=== PATIENT | female | born 1995 | race Caucasian/White ===

== ENCOUNTER 2025-09-12 19:47 | Inpatient (IN) | payer BC ==
[2025-09-12 20:32] LABS: #Basophils 0.04 10x3/uL (0.0-0.2); #Eosinophils 0.54 10x3/uL (0.0-0.5); #Monocytes 1.16 10x3/uL (0.0-1.1); #Neutrophils 12.10 10x3/uL (1.5-8.4); %Basophils 0.3 % (0.0-2.0); %Eosinophils 3.5 % (0.0-6.0); %Lymphocytes 11.0 % (18.0-47.0); %Monocytes 7.4 % (0.0-10.0); %Neutrophils 77.5 % (40.0-75.0); Hematocrit 35.4 % (34.9-44.5); Hemoglobin 11.4 g/dL (12.0-15.5); Mean Corpuscular Hemoglobin 27.7 pg (27.0-33.0); Mean Corpuscular Volume 86.1 fL (81.6-98.3); Platelet Count 286 10x3/uL (150-450); Red Blood Cell (RBC) Count 4.11 10x6/uL (3.90-5.03); White Blood Cell (WBC) Count 15.60 10x3/uL (3.5-10.5)
[2025-09-12 20:54] LABS: ALT (SGPT) 9 U/L (Less than 34); AST (SGOT) 19 U/L (11-34); Albumin 4.1 g/dL (3.1-4.5); Alkaline Phosphatase 79 U/L (40-110); Anion Gap 14 mmol/L (10-20); BUN (Urea Nitrogen) 14 mg/dL (7.0-18.7); Bilirubin, Total 0.4 mg/dL (0.3-1.2); Calc. Creatinine Clearance 0 mL/min (70-130); Calcium 9.1 mg/dL (7.8-10.44); Carbon Dioxide 22 mmol/L (22-29); Chloride 105 mmol/L (98-107); Globulin 3.3 g/dL (2.4-3.5); Glucose 97 mg/dL (70-105); Potassium 3.9 mmol/L (3.5-5.1); Sodium 137 mmol/L (136-145)
[2025-09-12] MEDS ORDERED: cefTRIAXone (ROCEPHIN) 2 GM VIAL ONE (21:09)
[2025-09-12] MEDS ORDERED: Acetaminophen 500 MG TAB ONE (21:09)
[2025-09-12 21:13] LABS: Glucose, Urine (Dipstick) Normal (Negative); Leukocyte Negative (Negative); Protein, Urine (Dipstick) Negative (Neg-Trace); Specific Gravity, Urine 1.010 (1.005-1.030)
[2025-09-12 22:03] LABS: CAUTI Indications for Culture Pelvic or flank pain; RBC/HPF 0-3 HPF (0-3); WBC/HPF 0-3 HPF (0-3)
[2025-09-12 22:04] LABS: Bacteria/HPF 1+ HPF (None Seen)
[2025-09-12 22:05] LABS: Urine Culture Reflex No No
[2025-09-13] MEDS ORDERED: Ondansetron PF 4 MG/2 ML Vial IVP PRN (01:17)
[2025-09-13] MEDS ORDERED: Calcium Carbonate 500 MG ChewTAB PO PRN (01:17)
[2025-09-13] MEDS ORDERED: Senokot S 8.6-50 MG TAB PO PRN (01:17)
[2025-09-13 02:58] VITALS: BMI 24.3
[2025-09-13 06:24] LABS: #Basophils 0.03 10x3/uL (0.0-0.2); #Eosinophils 0.58 10x3/uL (0.0-0.5); #Monocytes 1.10 10x3/uL (0.0-1.1); #Neutrophils 11.50 10x3/uL (1.5-8.4); %Basophils 0.2 % (0.0-2.0); %Eosinophils 3.9 % (0.0-6.0); %Lymphocytes 11.7 % (18.0-47.0); %Monocytes 7.3 % (0.0-10.0); %Neutrophils 76.4 % (40.0-75.0); Hematocrit 34.4 % (34.9-44.5); Hemoglobin 10.7 g/dL (12.0-15.5); Mean Corpuscular Hemoglobin 27.6 pg (27.0-33.0); Mean Corpuscular Volume 88.9 fL (81.6-98.3); Platelet Count 234 10x3/uL (150-450); Red Blood Cell (RBC) Count 3.87 10x6/uL (3.90-5.03); White Blood Cell (WBC) Count 15.05 10x3/uL (3.5-10.5)
[2025-09-13 06:39] LABS: Vancomycin, Random 16.0 ug/mL (See Comment)
[2025-09-13] MEDS: Vancomycin HCl 750 MG in Sodium Chloride 0.9% 250 ML 250 ML IVPB SCH (08:12)
[2025-09-13] MEDS: Clindamycin 150 MG CAP PO SCH (12:45)
[2025-09-13] MEDS: Acetaminophen 325 MG TAB PO PRN (19:39)
[2025-09-13] MEDS: FLU (Fluarix Triv) 25-26 (6MOS UP)/PF 45 MCG/0.5 ML Syringe IM ONE (19:42)
[2025-09-13] MEDS ORDERED: cefTRIAXone\\ROCEPHIN 1 GM in Sodium Chloride 0.9% 100 ML IVPB SCH (21:00)
[2025-09-14 05:22] LABS: #Basophils 0.03 10x3/uL (0.0-0.2); #Eosinophils 1.36 10x3/uL (0.0-0.5); #Monocytes 1.05 10x3/uL (0.0-1.1); #Neutrophils 7.82 10x3/uL (1.5-8.4); %Basophils 0.2 % (0.0-2.0); %Eosinophils 11.2 % (0.0-6.0); %Lymphocytes 14.8 % (18.0-47.0); %Monocytes 8.7 % (0.0-10.0); %Neutrophils 64.8 % (40.0-75.0); Hematocrit 34.0 % (34.9-44.5); Hemoglobin 10.6 g/dL (12.0-15.5); Mean Corpuscular Hemoglobin 27.9 pg (27.0-33.0); Mean Corpuscular Volume 89.5 fL (81.6-98.3); Platelet Count 243 10x3/uL (150-450); Red Blood Cell (RBC) Count 3.80 10x6/uL (3.90-5.03); White Blood Cell (WBC) Count 12.09 10x3/uL (3.5-10.5)
[2025-09-14 05:39] LABS: Anion Gap 12 mmol/L (10-20); BUN (Urea Nitrogen) 12 mg/dL (7.0-18.7); Calc. Creatinine Clearance 147 mL/min (70-130); Calcium 8.8 mg/dL (7.8-10.44); Carbon Dioxide 24 mmol/L (22-29); Chloride 107 mmol/L (98-107); Glucose 84 mg/dL (70-105); Potassium 4.2 mmol/L (3.5-5.1); Sodium 139 mmol/L (136-145)
[2025-09-15 04:53] LABS: #Basophils Less than 0.03 10x3/uL (0.0-0.2); #Eosinophils 1.10 10x3/uL (0.0-0.5); #Monocytes 0.70 10x3/uL (0.0-1.1); #Neutrophils 6.29 10x3/uL (1.5-8.4); %Basophils 0.2 % (0.0-2.0); %Eosinophils 10.9 % (0.0-6.0); %Lymphocytes 19.3 % (18.0-47.0); %Monocytes 6.9 % (0.0-10.0); %Neutrophils 62.3 % (40.0-75.0); Hematocrit 36.3 % (34.9-44.5); Hemoglobin 11.3 g/dL (12.0-15.5); Mean Corpuscular Hemoglobin 27.6 pg (27.0-33.0); Mean Corpuscular Volume 88.5 fL (81.6-98.3); Platelet Count 261 10x3/uL (150-450); Red Blood Cell (RBC) Count 4.10 10x6/uL (3.90-5.03); White Blood Cell (WBC) Count 10.10 10x3/uL (3.5-10.5)
[2025-09-15 11:45] VITALS: BP 117/72; TEMP 98.2
[2025-09-15] MEDS: Cephalexin 500 MG CAP PO SCH (13:48)
== END 2025-09-15 13:54 | disposition home or self-care (01) | DRG 776 ==
LOC: CSHERS 19:47 → CSHERHOLD 09-13 01:26 → CSHPP 09-13 02:51
PROVIDERS: ADMIT Internal Medicine; ATTEND Internal Medicine
DX: O91.22 Nonpurulent mastitis associated with the puerperium (principal); O85 Puerperal sepsis; O90.81 Anemia of the puerperium; B95.61 Methicillin susceptible Staphylococcus aureus infection as the cause of diseases classified elsewhere; Z98.890 Other specified postprocedural states
CPT/HCPCS: 36415; 80048; 80053; 80202; 81001; 83605; 84145; 85025; 86140; 87040; 87077; 87081; 87086; 93005; 94760; J0696; J3373; J7030; J7050